=== PATIENT | male | born 1990 | race Caucasian/White ===

== ENCOUNTER 2019-10-19 12:04 | Emergency (ER) | payer OTHER ==
[~2019-10-19] VITALS: Ht 172.7 cm; Wt 77.1 kg
[~2019-10-19 12:04] MED LIST: CLON.2 PO; LITHIUM CARBONATE; NAPR500 PO; PROM25 PO; PROZAC
[2019-10-19 13:45] LABS: Source, Urine Clean Catch
[2019-10-19 14:03] LABS: Bilirubin, Urine Neg (Neg); Blood, Urine Neg (Neg); Glucose Qualitative, Urine Neg (Neg); Ketones, Urine Neg (Neg); Leukocyte Esterase, Urine Neg (Neg); Nitrite, Urine Neg (Neg); Protein, Urine 2+ (Neg); Specific Gravity, Urine 1.015 (1.003-1.022); Urobilinogen, Urine NORM (Normal)
[2019-10-19 14:04] LABS: Appearance, Urine Clear (Clear); Color, Urine Yellow (P-Yellow)
[2019-10-19 14:13] LABS: Red Blood Cells, Urine Not Seen /hpf (0-2); White Blood Cells, Urine Not Seen /hpf (0-5)
[2019-10-19 14:14] LABS: Bacteria Not Seen /hpf; Squamous Epithelial Cells Rare /hpf (Few)
[2019-10-20 20:10] LABS: CHLAMYDIA TRACHOMATIS, NAA Negative (Negative); NEISSERIA GONORRHOEAE, NAA Negative (Negative)
== END 2019-10-19 15:03 | disposition home or self-care (01) ==
LOC: ER 12:04
PROVIDERS: Physician Assistant
DX: N43.3 Hydrocele, unspecified (principal); I86.1 Scrotal varices; N50.812 Left testicular pain; F31.9 Bipolar disorder, unspecified; F98.8 Other specified behavioral and emotional disorders with onset usually occurring in childhood and adolescence
CPT/HCPCS: 76870; 81001; 87491; 87591; 96372; 99284-25; J0696

== ENCOUNTER 2019-12-28 19:23 | Emergency (ER) | payer OTHER ==
[~2019-12-28] VITALS: Ht 172.7 cm; Wt 65.8 kg
[~2019-12-28 19:23] MED LIST changes: +AMOCLA875 PO
== END 2019-12-28 20:09 | disposition home or self-care (01) ==
LOC: ER 19:23
DX: L08.9 Local infection of the skin and subcutaneous tissue, unspecified (principal); S91.302D Unspecified open wound, left foot, subsequent encounter; F17.210 Nicotine dependence, cigarettes, uncomplicated; Z79.2 Long term (current) use of antibiotics; F31.9 Bipolar disorder, unspecified; F90.9 Attention-deficit hyperactivity disorder, unspecified type
CPT/HCPCS: 99283